=== PATIENT | male | born 1970 | race Hispanic/Latino ===

== ENCOUNTER 2018-10-20 17:16 | Inpatient (IN) | payer MEDICAID ==
[2018-10-20 17:16] VITALS: BMI 28.2
--- NOTE | 2018-10-20 19:04 | ED PDOC ---
HPI: Psych/Substance Abuse Time Seen by Provider: 10/20/18 18:00 Chief Complaint (Nursing): Psychiatric Evaluation Chief Complaint (Provider): Psychiatric Evaluation History Per: Patient, Family (cousin ) History/Exam Limitations: no limitations Onset/Duration Of Symptoms: Days (few weeks) Associated Symptoms: Anxiety, Suicidal Thoughts, Suicidal Plan Additional Complaint(s): 48 year old male with a history of anxiety, questionable COPD and CAD (stents placed in March 2018) presents to the ED accompanied by cousin and aunt for psychiatric evaluation. Patient states he has been having frequent, recurrent panic attacks over the past few weeks. He takes Xanax, last dose was 1 mg PO this morning. Patient presented to [facility] today because he was having recurrent panic attacks and was sent home a couple hours later. Since arriving home, he began feeling anxious and had another attack, prompting ED visit. History was corroborated by cousin, who states patient is addicted to Xanax and has been taking his mothers pills. As per cousin, patient was seen at [facility] a week or two ago. At that time, he was told he would get any further Xanax as he was abusing it. Patient has gone through 60 pills in less than 3 weeks. Of note, patient states he needs help, cant live like this and wants to . He also stated that he would take pills today, took a knife and threatened to stab himself. PMD: Dr. Brunner Past Medical History Reviewed: Historical Data, Nursing Documentation, Vital Signs Vital Signs: Last Vital Signs Temp 98.5 F 10/20/18 17:23 Pulse 95 H 10/20/18 17:23 Resp 17 10/20/18 17:23 BP 144/96 H 10/20/18 17:23 Pulse Ox 99 10/20/18 17:23 - Medical History PMH: Anemia (Denied by pt.), Anxiety, Arthritis, Asthma, Back Problems, Bipolar Disorder, Bronchitis, COPD, Depression, Fractures (L ANKLE FX,LOWER BACK RECONSTRUCTIVE SX,L KNEE SYNOVITIS,R SHOULDER,R KNEE,), HTN, Hypercholesterolemia, Hyperlipidemia, TIA Denies: Alzheimer's Disease, Cardia Arrhythmia, Crohn's Disease, Dementia, Diabetes, Diverticulitis, Emphysema, Fibromyalgia, Gastrointestinal Ulcer, Gall Bladder Disease, Hepatitis, HIV, Hyperthyroidism, Hypothyroidism, Kidney Stones, Migraine, Mitral Valve Prolapse, Osteoporosis, Pancreatitis, Paranoia, Parkinson's Disease, Peripheral Edema, Pneumonia, Post Traumatic Stress Diso rder, Chronic Kidney Disease, Schizophrenia, Seizures, Sickle Cell Disease, Sexually Transmitted Disease, Sleep Apnea Comment Only: CHF (PR . S/p TCCA stent placement X 2 weeks ago.) - Surgical History Surgical History: Coronary Stent (X1) Denies: Pacemaker - Family History Family History: States: Unknown Family Hx - Immunization History Hx Tetanus Toxoid Vaccination: No Hx Influenza Vaccination: No Hx Pneumococcal Vaccination: No - Home Medications Home Medications: Ambulatory Orders Medication Instructions Recorded RX: Pantoprazole Sodium [Protonix] 40 mg PO DAILY 03/18/18 RX: Aspirin [Aspirin Chewable] 81 mg PO DAILY #30 chew 03/23/18 RX: Atorvastatin [Lipitor] 40 mg PO DIN #30 tab 03/23/18 RX: Clopidogrel [Plavix] 75 mg PO DAILY #30 tab 03/23/18 RX: ALPRAZolam [Xanax] 2 mg PO Q8H PRN 10/12/18 RX: Gabapentin [Neurontin] 100 mg PO DAILY 10/12/18 RX: Insulin Detemir [Levemir] 15 unit SC QAM 10/12/18 RX: Losartan [Cozaar] 50 mg PO DAILY 10/12/18 RX: MetFORMIN ER [Glucophage XR] 500 mg PO BID 10/12/18 RX: Metoprolol Succinate [Toprol 25 mg PO DAILY 10/12/18 Xl] RX: Oxycodone HCl [Oxycontin] 15 mg PO BID PRN 10/12/18 RX: oxyCODONE [oxyCODONE Immediate 10 mg PO TID PRN 10/12/18 Release Tab] RX: PARoxetine [Paxil] 10 mg PO HS #14 tab 10/13/18 - Allergies Allergies/Adverse Reactions: Allergies Allergy/AdvReac Type Severity Reaction Status Date / Time carisoprodol [From Soma] Allergy DIZZINESS Verified 10/20/18 17:26 varenicline [From Chantix] Allergy VOMITING Verified 10/20/18 17:26 Review of Systems ROS Statement: Except As Marked, All Systems Reviewed And Found Negative Cardiovascular: Positive for: Chest Pain Respiratory: Positive for: Shortness of Breath Psych: Positive for: Anxiety, Suicidal ideation Physical Exam - Reviewed Nursing Documentation Reviewed: Yes Vital Signs Reviewed: Yes - Physical Exam Appears: Positive for: No Acute Distress (but anxious appearing) Head Exam: Positive for: ATRAUMATIC, NORMOCEPHALIC Skin: Positive for: Normal Color, Warm, Dry Eye Exam: Positive for: Conjunctival injection (bilateral) Neck: Positive for: Normal Cardiovascular/Chest: Positive for: Tachycardia. Negative for: Murmur Respiratory: Positive for: Normal Breath Sounds. Negative for: Respiratory Distress Extremity: Positive for: Normal ROM (upper and lower). Negative for: Pedal Edema, Deformity Neurologic/Psych: Positive for: Alert, Oriented, Other (bilateral hand tremors, he appears anxious) - Laboratory Results Result Diagrams: 10/20/18 19:04 10/20/18 19:04 - ECG O2 Sat by Pulse Oximetry: 99 (RA) Pulse Ox Interpretation: Normal Medical Decision Making Medical Decision Making: Time: 1828 Plan: --Crisis evaluation --urine drug screen --CBC --CMP --EKG --portable CXR --serum ETOH --UA Time: 1940 --Patient to be admitted for unspecified substance abuse disordered under Dr. Jamison. Time: 1954 --Normal sinus rhythm, 84 bpm, normal ECG. CXR read by provider, no acute disease. Patient is medically stable for psychiatric admission. Patient mildly agitated so Vesteril 50mg PO x 1 ordered. Scribe Attestation: Documented by Silva Ojeda, acting as a scribe for Izzy Martino PA-C Provider Scribe Attestation: All medical record entries made by the Scribe were at my direction and personally dictated by me. I have reviewed the chart and agree that the record accurately reflects my personal performance of the history, physical exam, medical decision making, and the department course for this patient. I have also personally directed, reviewed, and agree with the discharge instructions and disposition. Disposition - Clinical Impression Clinical Impression: Other psychoactive substance abuse, uncomplicated - Patient ED Disposition Is Patient to be Admitted: Yes Discussed With : Baldemar Jamison Doctor Will See Patient In The: Hospital Counseled Patient/Family Regarding: Studies Performed, Diagnosis, Need For Followup - Disposition Disposition: Transfer of Care Disposition Time: 19:41 Condition: STABLE
[2018-10-20 19:09] LABS: BASO # 0.2 K/uL (0.0-0.2); BASO % 1.2 % (0.0-2.0); EOS # 0.1 K/uL (0.0-0.7); EOS % 0.5 % (0.0-4.0); HEMOGLOBIN 16.6 g/dL (12.0-18.0); LYMPH % 21.3 % (20.0-40.0); MEAN CELL VOLUME 90.8 fl (80.0-94.0); MEAN CORPUSCULAR HGB CONC 35.3 g/dL (33.0-37.0); MEAN PLATELET VOLUME 9.4 fl (7.2-11.7); MONO # 0.8 K/uL (0.0-0.8); MONO % 5.6 % (0.0-10.0); NEUT # 10.1 K/uL (1.8-7.0); NEUT % 71.4 % (50.0-75.0); RBC 5.19 Mil/uL (4.40-5.90); RED CELL DISTRIBUTION WIDTH 13.1 % (11.5-14.5); WHITE BLOOD COUNT 14.1 K/uL (4.8-10.8)
[2018-10-20 19:17] LABS: ALB/GLOB RATIO 1.4 (1.0-2.1); ALBUMIN 4.2 g/dL (3.5-5.0); ALT/SGPT 27 U/L (21-72); AST/SGOT 19 U/L (17-59); BLOOD UREA NITROGEN 18 mg/dl (9-20); CALCIUM 9.7 mg/dL (8.4-10.2); GFR NON-AFRICAN AMERICAN > 60
[2018-10-20 19:18] LABS: URINE BILIRUBIN NEGATIVE (NEGATIVE); URINE BLOOD NEGATIVE (NEGATIVE); URINE CALCIUM OXALATE CRYSTALS MANY /hpf (<OCC); URINE CLARITY SLIGHTY-CLOUDY (Clear); URINE COLOR YELLOW (YELLOW); URINE GLUCOSE (UA) NEG (NEGATIVE); URINE LEUKOCYTE ESTERASE NEG Leu/uL (Negative); URINE PROTEIN 100 mg/dL (NEGATIVE)
[2018-10-20 19:20] LABS: GRANULAR CAST 5 /lpf (0-1); URINE BACTERIA FEW (<OCC)
[2018-10-20 19:40] LABS: BARBITURATES, UR NEGATIVE (NEGATIVE); BENZODIAZEPINES, UR POSITIVE (NEGATIVE); OPIATES, UR POSITIVE (NEGATIVE); PHENCYCLIDINE, UR NEGATIVE (NEGATIVE)
[2018-10-20 21:16] VITALS: O2SAT 99
[2018-10-20] MEDS ORDERED: Alum-Mag Hydrox-Simethicone Susp (30 mL) PO PRN (21:47)
[2018-10-20] MEDS ORDERED: Magnesium Hydroxide Susp 30 ml UD PO PRN (21:47)
[2018-10-20] MEDS ORDERED: DiphenhydrAMINE 50 mg/ml Inj IM PRN (21:47)
--- NOTE | 2018-10-21 00:55 | PCM.BM ---
<ErastoameyaEwelina Ivory - Last Filed: 10/21/18 00:53> Treatment Plan Problems - Problems identified on initial assessmt Anxiety Date Initiated: 10/20/18 Time Initiated: 22:00 Assessment reference: NA Status: Active Panic attacks Date Initiated: 10/20/18 Time Initiated: 22:00 Assessment reference: NA Status: Active Altered Sleep Patterns Date Initiated: 10/20/18 Time Initiated: 22:00 Assessment reference: NA Status: Active Treatment assets and liabiliti Patient Assests: cooperative, ADL independent, good support system, negotiates basic needs, good past tx response, cognitively intact Patient Liabilities: physical pain, substance abuse, medical problems - Milieu Protocol Maintain good personal hygiene: daily Encourage regular showers, daily Remind patient to perform daily oral care (prn), other Remind patient to perform daily oral care, other Assist patient to perform ADL's (prn) Conduct patient checks and document Observation sheet: Q15 minutes Maintain personal safety: every shift Educate patient to report safety concerns to staff, every shift Monitor environment for contraband/sharps Medication safety: Monitor for expected outcome, potential side effects: every shift, Assess barriers to learning: every shift, Assess readiness for medication education: every shift <Ranjana Summers - Last Filed: 10/25/18 12:10> Treatment assets and liabiliti Patient Assests: adapts well, cooperative, resourceful, good support system (Pt. reports having a loving and supportive relationship with family (mother, cousins, siblings). Pt. reports father was primary support until his passing 6 years ago. Pt. identifies fathers passing as a stressor. ), negotiates basic needs, good past tx response, cognitively intact Patient Liabilities: physical pain (Pt. reports hx of a spinal fusion resulting in pt. being placed on pain medication. Pt. 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 Please see H&P.), substance abuse (Pt. reports significant hx of cocaine abuse but reports maintaining sobriety for 20 years. As per collateral collected from pts family at admission, pt. has been abusing prescription drugs (Xanax, Oxy, Paxil). Family reported suspicion that pt. is taking prescription drugs from mother. Family reported pt. was found unresponsive in 08/2017 and required Narcan, resulting in admission to ICU/coma for 5 days. Pt. adamantly denies this as a result of substance abuse.) Family Contact Family involvement: Family/SO is involved Family contact: Patient agrees to contact, Family has been contacted by patient, Telephone contact initiated by staff Family contact comment: Award Clerk placed call to pts cousin (Juan Francisco [phone]) to notify pts cousin and mother that Nurse E Learning Manager Berkley Medina has approved family request to visit patient outside of visitation hours (for 30 minutes) secondary to pts mother not driving and needing cousin to bring her to [facility]. staffing and scheduling coordinator has also been notified of the above. Award Clerk forwarded to unidentified voicemail. No voicemail left. Award Clerk to attempt call at later time. . Award Clerk to contact pts mother to discuss pts tx and address family concerns. - Goals for Treatment Patient goals for treatment: Patient to continue stabilization on 3NP through medication management and group/supportive therapy to address sxs of anxiety, reduce intensity and frequency of panic attacks, and improve insight into abuse of substances. Patient to be encouraged to attend groups regularly to promote self-awareness, sobriety, and improve insight, compliance, coping skills and self-esteem. Patient to be provided with referral for appropriate level of aftercare to reduce risk of future hospitalizations and ensure safety in the community. Pt. identified primary tx goal to "stop having panic attacks." Discharge/Continuing Care - Education Needs Education Needs: Family Medication, Family Diagnosis/Disease Process, Family Coping Skills, Family Community resources, Family Aftercare Safety Plan, Patient Medication, Patient Diagnosis/Disease Process, Patient Coping Skills, Patient Anger Management skills, Patient Community resources, Patient Health Practices/Safety, Patient Aftercare Safety Plan - Discharge Discharge Criteria: Tolerates medication w/o severe side effects, Free of Suicidal thoughts, Free of agitation, Normal sleep pattern, Ability to care for self, No longer exhibiting s/s of withdrawal, Reduction of target symptoms (reduction in frequency/intensity of panic attacks) Discharge to:: Home, With Family - Treatment Team Participation Patient/Family/SO Statement: 10/25/18 12:17 Patient brought into tx team on 10/23 to discuss precursors to hospitalization and tx goals. Pt. reported frequent panic attacks and contributed worsening intensity/frequency to discontinuation of Xanax. Extensive psychoeducation regarding long-term risks of Xanax use provided. Pt. minimally receptive to feedback, stating Its the only thing that works. Pt. appeared to be minimizing substance abuse and denied validity of family concerns regarding pts abuse of prescription medications. Alternate health coping skills and medication management discussed at length. Pt. ambivalent but agreeable to recommended medication regimen. Pt. presents as anxious as exhibited by restlessness. Pt. denied SI/HI and is able to contract for safety on 3NP. Pt. visible on 3NP and observed socializing appropriately with peers. Discussed with Family/SO: No Was Patient/Family/SO present at Treatment Team Meeting: Yes <Baldemar Jamison - Last Filed: 10/26/18 08:58> - Diagnosis (1) Sedative abuse Status: Acute Interventions: 10/26/18 08:57 motivational therapy
--- NOTE | 2018-10-21 09:10 | RAD ---
HISTORY: chest pain COMPARISON: None available. TECHNIQUE: Chest, one view. FINDINGS: LUNGS: No focal consolidation. Please note that chest x-ray has limited sensitivity for the detection of pulmonary masses. PLEURA: No significant pleural effusion identified. No definite pneumothorax . CARDIOVASCULAR: Heart size appears within normal. No significant atherosclerotic calcification present. OSSEOUS STRUCTURES: No acute osseous abnormality identified. VISUALIZED UPPER ABDOMEN: Unremarkable. OTHER FINDINGS: None. IMPRESSION: No focal consolidation.
[2018-10-21] MEDS: Multivitamin With Minerals Tab PO SCH (10:30)
[2018-10-21 10:31] LABS: HEMOGLOBIN 16.3 g/dL (12.0-18.0); MEAN CELL VOLUME 92.4 fl (80.0-94.0); MEAN CORPUSCULAR HEMOGLOBIN 31.8 pg (27.0-31.0); MEAN CORPUSCULAR HGB CONC 34.5 g/dL (33.0-37.0); RBC 5.11 Mil/uL (4.40-5.90); RED CELL DISTRIBUTION WIDTH 13.2 % (11.5-14.5); WHITE BLOOD COUNT 7.1 K/uL (4.8-10.8)
--- NOTE | 2018-10-21 10:36 | CP.PCM.CON ---
History of Present Illness - History of Present Illness History of Present Illness: 48 yo male with history of CAD, COPD, DM2, HTN, HLD and Anxiety admitted to psyche unit because of recurrent panic attacks the last few weeks. The patient has been abusing intake of Xanax because of increased anxiety. Review of Systems - Review of Systems All systems: reviewed and no additional remarkable complaints except (aside from those mentioned above, 12 point system review were negative by me) Past Patient History - Infectious Disease Hx of Infectious Diseases: None - Tetanus Immunizations Tetanus Immunization: Unknown - Past Medical History & Family History Past Medical History?: Yes - Past Social History Smoking Status: Heavy Smoker > 10 Cigarettes Daily Chewing Tobacco Use: No Cigar Use: No Alcohol: Occasional Drugs: Denies Home Situation {Lives}: With Family - CARDIAC Hx Cardia Arrhythmia: No Hx Heart Attack: Yes Hx Hypercholesterolemia: Yes Hx Hypertension: Yes Hx Mitral Valve Prolapse: No Hx Pacemaker: No Hx Peripheral Edema: No - PULMONARY Hx Asthma: Yes Hx Bronchitis: Yes Hx Chronic Obstructive Pulmonary Disease (COPD): Yes Hx Emphysema: No Hx Pneumonia: No Hx Sleep Apnea: No - NEUROLOGICAL Hx Alzheimer's Disease: No Hx Dementia: No Hx Migraine: No Hx Parkinson's Disease: No Hx Seizures: No Hx Transient Ischemic Attacks (TIA): Yes - HEENT Hx HEENT Problems: No - RENAL Hx Chronic Kidney Disease: No Hx Kidney Stones: No - ENDOCRINE/METABOLIC Hx Diabetes Mellitus Type 2: Yes - HEMATOLOGICAL/ONCOLOGICAL Hx Anemia: Yes (Denied by pt.) Hx Human Immunodeficiency Virus (HIV): No Hx Sickle Cell Disease: No - INTEGUMENTARY Hx Dermatological Problems: Yes (Allergy to red tattoo dye.) - MUSCULOSKELETAL/RHEUMATOLOGICAL Hx Arthritis: Yes Hx Osteoporosis: No - GASTROINTESTINAL Hx Crohn's Disease: No Hx Diverticulitis: No Hx Gall Bladder Disease: No Hx Pancreatitis: No - GENITOURINARY/GYNECOLOGICAL Hx Sexually Transmitted Disorders: No - PSYCHIATRIC Hx Substance Use: Yes - SURGICAL HISTORY Hx Coronary Stent: Yes Other/Comment: Reconstructed spine and right shoulder - ANESTHESIA Hx Anesthesia: Yes Hx Anesthesia Reactions: No Hx Malignant Hyperthermia: No Has any member of the family had a problem w/ anesthesia?: No Meds Allergies/Adverse Reactions: Allergies Allergy/AdvReac Type Severity Reaction Status Date / Time carisoprodol [From Soma] Allergy DIZZINESS Verified 10/20/18 17:26 varenicline [From Chantix] Allergy VOMITING Verified 10/20/18 17:26 - Medications Medications: Current Medications Acetaminophen (Tylenol 325mg Tab) 650 mg PO Q4 PRN PRN Reason: pain (4-7) Al Hydrox/Mg Hydrox/Simethicone (Maalox Plus 30 Ml) 30 ml PO Q4 PRN PRN Reason: Dyspepsia Clonidine HCl (Catapres) 0.1 mg PO Q8 [facility] Stop: 10/24/18 01:01 Last Admin: 10/21/18 00:59 Dose: Not Given Diphenhydramine HCl (Benadryl) 50 mg IM Q6 PRN PRN Reason: Extrapyramidal S/S Unable PO Diphenhydramine HCl (Benadryl) 50 mg PO Q6 PRN PRN Reason: Extrapyramidal Symptoms Haloperidol (Haldol) 5 mg PO Q4 PRN PRN Reason: Agitation Haloperidol Lactate (Haldol) 5 mg IM Q4 PRN PRN Reason: Agitation, Unable to Take PO Ibuprofen (Motrin Tab) 600 mg PO Q8 PRN PRN Reason: pain (8-10) Loperamide HCl (Imodium) 2 mg PO Q6 PRN PRN Reason: after each LBM Stop: 10/23/18 21:55 Lorazepam (Ativan) 2 mg IM Q4 PRN PRN Reason: Anxiety/Agitation,Unable PO Lorazepam (Ativan) 2 mg PO Q8 PRN PRN Reason: Anxiety/Agitation Last Admin: 10/20/18 22:17 Dose: 2 mg Magnesium Hydroxide (Milk Of Magnesia) 30 ml PO HS PRN PRN Reason: Constipation Multivitamins/Minerals (Therapeutic-M Tab) 1 tab PO DAILY [facility] Last Admin: 10/21/18 10:30 Dose: 1 tab Physical Exam - Constitutional Appears: No Acute Distress - Head Exam Head Exam: ATRAUMATIC - Eye Exam Eye Exam: absent: Scleral icterus - ENT Exam ENT Exam: Mucous Membranes Moist - Neck Exam Neck exam: Negative for: Meningismus - Respiratory Exam Respiratory Exam: absent: Rales, Rhonchi, Wheezes, Respiratory Distress - Cardiovascular Exam Cardiovascular Exam: REGULAR RHYTHM, +S1, +S2 - GI/Abdominal Exam GI & Abdominal Exam: Soft. absent: Tenderness - Rectal Exam Rectal Exam: Deferred - Extremities Exam Extremities exam: Negative for: pedal edema - Back Exam Back exam: NORMAL INSPECTION - Neurological Exam Neurological exam: Alert, Oriented x3 - Psychiatric Exam Psychiatric exam: Normal Affect - Skin Skin Exam: Dry, Intact Results - Vital Signs Recent Vital Signs: Last Vital Signs Temp 97.5 F L 10/21/18 09:00 Pulse 100 H 10/21/18 09:00 Resp 20 10/21/18 09:00 BP 130/89 10/21/18 09:00 Pulse Ox 99 10/20/18 21:17 - Labs Result Diagrams: 10/20/18 19:04 10/20/18 19:04 Labs: Laboratory Results - last 24 hr 10/20/18 10/20/18 10/20/18 19:04 19:04 19:04 WBC 14.1 H RBC 5.19 Hgb 16.6 Hct 47.1 MCV 90.8 MCH 32.0 H MCHC 35.3 RDW 13.1 Plt Count 168 MPV 9.4 Neut % (Auto) 71.4 Lymph % (Auto) 21.3 [place] % (Auto) 5.6 Eos % (Auto) 0.5 Baso % (Auto) 1.2 Neut # (Auto) 10.1 H Lymph # (Auto) 3.0 [place] # (Auto) 0.8 Eos # (Auto) 0.1 Baso # (Auto) 0.2 Sodium 137 Potassium 3.5 L Chloride 100 Carbon Dioxide 21 L Anion Gap 20 BUN 18 Creatinine 1.0 Est GFR ( Amer) > 60 Est GFR (Non-Af Amer) > 60 POC Glucose (mg/dL) Random Glucose 172 H Calcium 9.7 Total Bilirubin 0.6 AST 19 ALT 27 Alkaline Phosphatase 98 Total Protein 7.3 Albumin 4.2 Globulin 3.0 Albumin/Globulin Ratio 1.4 Urine Color Urine Clarity Urine pH Ur Specific [place] Urine Protein Urine Glucose (UA) Urine Ketones Urine Blood Urine Nitrate Urine Bilirubin Urine Urobilinogen Ur Leukocyte Esterase Urine RBC (Auto) Urine Microscopic WBC Calcium Oxalate Crystal Urine Bacteria Granular Casts (Auto) Urine Opiates Screen Positive H Urine Methadone Screen Negative Ur Barbiturates Screen Negative Ur Phencyclidine Scrn Negative Ur Amphetamines Screen Negative U Benzodiazepines Scrn Positive U Oth Cocaine Metabols Negative U Cannabinoids Screen Negative 10/20/18 10/20/18 10/21/18 19:04 22:13 06:32 WBC RBC Hgb Hct MCV MCH MCHC RDW Plt Count MPV Neut % (Auto) Lymph % (Auto) [place] % (Auto) Eos % (Auto) Baso % (Auto) Neut # (Auto) Lymph # (Auto) [place] # (Auto) Eos # (Auto) Baso # (Auto) Sodium Potassium Chloride Carbon Dioxide Anion Gap BUN Creatinine Est GFR ( Amer) Est GFR (Non-Af Amer) POC Glucose (mg/dL) 176 H 142 H Random Glucose Calcium Total Bilirubin AST ALT Alkaline Phosphatase Total Protein Albumin Globulin Albumin/Globulin Ratio Urine Color Yellow Urine Clarity Slighty-cloudy Urine pH 6.0 Ur Specific [place] 1.029 Urine Protein 100 Urine Glucose (UA) Neg Urine Ketones Trace Urine Blood Negative Urine Nitrate Negative Urine Bilirubin Negative Urine Urobilinogen 2.0 Ur Leukocyte Esterase Neg Urine RBC (Auto) 1 Urine Microscopic WBC 1 Calcium Oxalate Crystal Many H Urine Bacteria Few H Granular Casts (Auto) 5 Urine Opiates Screen Urine Methadone Screen Ur Barbiturates Screen Ur Phencyclidine Scrn Ur Amphetamines Screen U Benzodiazepines Scrn U Oth Cocaine Metabols U Cannabinoids Screen Assessment & Plan (1) Panic attack Status: Chronic Priority: Medium Comment: psyche is managing (2) CAD (coronary artery disease) Status: Chronic Comment: continue ASA, Plavix, Lipitor and Metoprolol (3) COPD (chronic obstructive pulmonary disease) Status: Chronic Comment: asymptomatic (4) DM2 (diabetes mellitus, type 2) Status: Chronic Comment: BS relatively controlled. diabetic diet. continue Levemir. accuchek ACHS (5) HTN (hypertension) Status: Chronic Comment: BP stable. continue Losartan and Metoprolol
[2018-10-21 11:08] LABS: T4 7.66 ug/dl (5.5-11.0)
--- NOTE | 2018-10-21 11:31 | PCM.PSYCH ---
Initial Psychiatric Evaluation - Initial Psychiatric Evaluation Chief Complaint (in patient's own words): I have severe anxiety History of Present Illness and Precipitating Events: pt is 48 ys old male with previous diagnosis of generalized anxiety disorder, panic disorder and opiate and benzodiazepines abuse , reported to ER with increased anxiety frequent panic attacks, depression and suicidal ideation pt recently discharged from [facility], has been abusing xanax and pain medications, reported frequent panic attacks poor sleep, depressed mood and thoughts of ending his life' on the unit pt reported continues to feel anxious and irritable, poor sleep, passive suicidal ideation without active plan or intent on the unit, denied command hallucinations, denied homicidal ideation collateral information from the pt.s cousin, Juan Francisco Melton, . The pt.s cousin reported that the pt. is addicted to prescription pills, Xanax, Oxycodone , Paxil and many medications that he gains access to. The pt.s cousin explains that he was in [facility] on September 27 and was gone a prescription of Xanax that he took within one weeks time. According to the pts cousin he also takes his mothers prescription pills. The pt. has also lied suggesting that he is addicted to other illnesses just to obtain medications. The pt.s cousin reported that the pt. has never made any suicide attempts. The pt.s cousin reported that the pt. was discharged from [facility] today, and subsequently the pt. grabbed a knife and threatened to hurt himself. The pt.s cousin reported that the pt. had a spinal fusion and went to [facility] and was released with pain medication in the past, which may have contributed to his abuse. The pt.s father also six years ago, which may contribute to his life stress considering they owned a business together and were very close. The pt.s cousin reported that this is an atypical level of anxiety for the pt. and does believe that he may be capable of hurting himself. The pt.s cousin reported that the pt. has been seen speaking to himself. The pt.s cousin does believe that the pt. would benefit from inpatient psychiatric admission. The pt.s cousin reported that in August 2017 the pt. was found unresponsive and he needed to be given Narcan. Current Medications: Active Medications Generic Name Dose Route Start Last Admin Trade Name Freq PRN Reason Stop Dose Admin Acetaminophen 650 mg 10/20/18 21:47 Tylenol 325mg Tab PO Q4 PRN pain (4-7) Al Hydrox/Mg Hydrox/Simethicone 30 ml 10/20/18 21:47 Maalox Plus 30 Ml PO Q4 PRN Dyspepsia Clonidine HCl 0.1 mg 10/21/18 01:00 10/21/18 00:59 Catapres PO 10/24/18 01:01 Not Given Q8 LAYO Diphenhydramine HCl 50 mg 10/20/18 21:47 Benadryl IM Q6 PRN Extrapyramidal S/S Unable PO Diphenhydramine HCl 50 mg 10/20/18 21:47 Benadryl PO Q6 PRN Extrapyramidal Symptoms Haloperidol 5 mg 10/20/18 21:47 Haldol PO Q4 PRN Agitation Haloperidol Lactate 5 mg 10/20/18 21:47 Haldol IM Q4 PRN Agitation, Unable to Take PO Ibuprofen 600 mg 10/20/18 21:54 Motrin Tab PO Q8 PRN pain (8-10) Loperamide HCl 2 mg 10/20/18 21:54 Imodium PO 10/23/18 21:55 Q6 PRN after each LBM Lorazepam 2 mg 10/20/18 21:47 Ativan IM Q4 PRN Anxiety/Agitation,Unable PO Lorazepam 2 mg 10/20/18 21:47 10/20/18 22:17 Ativan PO 2 mg Q8 PRN Administration Anxiety/Agitation Magnesium Hydroxide 30 ml 10/20/18 21:47 Milk Of Magnesia PO HS PRN Constipation Multivitamins/Minerals 1 tab 10/21/18 09:00 Therapeutic-M Tab PO DAILY LAYO Past Psychiatric History - Past Psychiatric History Explanation of prior treatment: multiple hospitalizations, partial compliance History of ETOH/Drug Use: hx of opiate , benzodiazepines abuse Pertinent Medical Hx (Current Medical&Sleep Prob, Allergies): Allergies Allergy/AdvReac Type Severity Reaction Status Date / Time carisoprodol [From Soma] Allergy DIZZINESS Verified 10/20/18 17:26 varenicline [From Chantix] Allergy VOMITING Verified 10/20/18 17:26 Pantoprazole Sodium [Protonix] 40 mg PO DAILY 03/18/18 Aspirin [Aspirin Chewable] 81 mg PO DAILY #30 chew 03/23/18 Atorvastatin [Lipitor] 40 mg PO DIN #30 tab 03/23/18 Clopidogrel [Plavix] 75 mg PO DAILY #30 tab 03/23/18 ALPRAZolam [Xanax] 2 mg PO Q8H PRN 10/12/18 Gabapentin [Neurontin] 100 mg PO DAILY 10/12/18 Insulin Detemir [Levemir] 15 unit SC QAM 10/12/18 Losartan [Cozaar] 50 mg PO DAILY 10/12/18 MetFORMIN ER [Glucophage XR] 500 mg PO BID 10/12/18 Metoprolol Succinate [Toprol Xl] 25 mg PO DAILY 10/12/18 Oxycodone HCl [Oxycontin] 15 mg PO BID PRN 10/12/18 oxyCODONE [oxyCODONE Immediate Release Tab] 10 mg PO TID PRN 10/12/18 PARoxetine [Paxil] 10 mg PO HS #14 tab 10/13/18 Mental Status Examination - Personal Presentation Personal Presentation: Looks stated age - Affect Affect: Constricted - Motor Activity Motor Activity: Psychomotor Agitation - Reliability in Providing Information Reliability in Providing Information: Poor, due to altered mood - Speech Speech: Relevant - Mood Mood: Depressed, Anxious - Formal Thought Process Formal Thought Process: Circumstantial - Obsessions/Compulsions Obsessions: No Compulsions: No - Cognitive Functions Orientation: Person, Place, Situation Sensorium: Alert Attention/Concentration: Easily distracted Abstract Thinking: [place] Judgement: Imparied, as evidence by: Poor judgement, Imparied, as evidence by: Lack of insight into illness - Risk Risk: Suicidal, Withdrawal, Diminished functioning - Strength & Assets Inventory Strength & Assets Inventory: Life experience - Limitations Additional comments: poor compliance DSM 5 DX - DSM 5 DSM 5 Diagnosis: generalized anxiety disorder panic disorder sedative anxiolytic abuse opiate abuse - Recommended/Plan of Treatment Treatment Recommendations and Plan of Treatment: clonidine protocol/ monitor for opiate withdrawal consult internal medicine for pain management klonopin 1mg tid for xanax withdrawal, decrease gradually ativan 1mg tid for benzo withdrawal paxil 10mg qhs
--- NOTE | 2018-10-21 16:56 | CARD ---
APPROVED REPORT Date of service: 10/20/2018 EKG Measurement Heart [id number] <Conclusion> Normal sinus rhythm Normal ECG
[2018-10-21] MEDS: Oxycodone/Acetaminophen 5/325 mg Tab PO PRN (18:38)
--- NOTE | 2018-10-22 08:33 | PCM.PYCHPN ---
Psychiatric Progress Note - Psychiatric Progress Note Patient seen today, length of contact: Pt evaluated, case discussed w/ team, chart reviewed Patient Chief Complaint: "Severe, debilitating anxiety." Problems Identified/Issues Discussed: Patient reports that he feels "severe, debilitating anxiety." He reports concerns that he is going to have a panic attack and reports that he feels like he is having a heart attack when he has panic attacks. Psychoeducation provided on the importance of therapy and learning coping strategies to deal with anxiety. Psychoeducation also provided on the dangers of benzodiazepine abuse. Patient informed that the Klonopin will be tapered gradually. Medication Change: No (Will taper Klonopin starting tomorrow AM) Medical Record Reviewed: Yes Consults ordered or reviewed: Medicine Mental Status Examination - Cognitive Function Orientation: Person, Place, Situation, Time Memory: Intact Attention: WNL Concentration: WNL Association: WNL Fund of Knowledge: [facility] Decription of patient's judgement and insights: Poor I/J - Mood Mood: Depressed, Anxious - Affect Affect: Constricted - Formal Thought Process Formal Thought Process: No Impairment Psychotic Thoughts and Behaviors: Denies AH/VH/paranoia - Suicidal Ideation Suicidal Ideation: No - Homicidal Ideation Homicidal Ideation: No Goal/Treatment Plan - Goal/Treatment Plan Need for Continued Stay: Severe depression anxiety, Discharge may exacerbated symptoms Progress Toward Problem(s) and Goals/Treatment Plan: -Continue current medications; will taper Klonopin starting tomorrow AM -Individual and group therapy -Psychoeducation -Disposition planning
[2018-10-22] MEDS: Pantoprazole 40 mg EC Tab PO SCH (09:04)
[2018-10-22] MEDS: Multivitamin With Minerals Tab PO SCH (09:04)
[2018-10-22] MEDS: Metoprolol Succinate 25 mg XL Tab PO SCH (09:06)
[2018-10-22] MEDS: Oxycodone/Acetaminophen 5/325 mg Tab PO PRN ×3 (09:07→18:31)
[2018-10-22] MEDS: Insulin Detemir 100 Units/ml Inj SC SCH (09:11)
[2018-10-22] MEDS: Insulin Lispro (humaLOG) 100 Units/ml Inj SC SCH ×2 (17:17→21:17)
[2018-10-23] MEDS: Metoprolol Succinate 25 mg XL Tab PO SCH (10:57)
[2018-10-23] MEDS: Pantoprazole 40 mg EC Tab PO SCH (10:57)
[2018-10-23] MEDS: Multivitamin With Minerals Tab PO SCH (10:58)
[2018-10-23] MEDS: Insulin Detemir 100 Units/ml Inj SC SCH (11:05)
[2018-10-23] MEDS: Insulin Lispro (humaLOG) 100 Units/ml Inj SC SCH ×4 (11:12→21:07)
[2018-10-23] MEDS: Oxycodone/Acetaminophen 5/325 mg Tab PO PRN ×2 (11:35→21:35)
--- NOTE | 2018-10-23 13:21 | PCM.PYCHPN ---
Psychiatric Progress Note - Psychiatric Progress Note Patient seen today, length of contact: Pt evaluated, case discussed w/ team, chart reviewed Patient Chief Complaint: I am having panic attacks out of the blue Problems Identified/Issues Discussed: pt evaluated with treatment team, continues to report unprovoked repeated panic attacks with difficulty to breath , Psychoeducation provided, advised pt importance of starting CBT and individual therapy, motivational therapy provided in refernce to effects of xanax and opiate abuse on current mental status, pt aware that there will be gradual down tapering of klonopin, also will increase paxil, no reported omar effects pt denied suicidal or homicidal ideation, denied perceptual disturbances Medical Problems: multiple hospitalizations, partial compliance DSM 5 Symptoms Update: panic disorder opiate abuse benzodiazepines abuse Medication Change: Yes (increase paxil) Medical Record Reviewed: Yes Mental Status Examination - Cognitive Function Orientation: Person, Place, Situation, Time Memory: Intact Attention: WNL Concentration: WNL Association: WN Fund of Knowledge: WN - Mood Mood: Depressed, Anxious - Affect Affect: Constricted - Formal Thought Process Formal Thought Process: No Impairment - Suicidal Ideation Suicidal Ideation: No - Homicidal Ideation Homicidal Ideation: No Goal/Treatment Plan - Goal/Treatment Plan Need for Continued Stay: Severe depression anxiety, Discharge may exacerbated symptoms Progress Toward Problem(s) and Goals/Treatment Plan: discontinue clonidine klonopin 0.5mg tid for xanax withdrawal, decrease gradually ativan 1mg tid for benzo withdrawal increase paxil 20mg qhs
[2018-10-24] MEDS: Oxycodone/Acetaminophen 5/325 mg Tab PO PRN (08:43)
[2018-10-24] MEDS: Multivitamin With Minerals Tab PO SCH (08:44)
[2018-10-24] MEDS: Metoprolol Succinate 25 mg XL Tab PO SCH (08:45)
[2018-10-24] MEDS: Pantoprazole 40 mg EC Tab PO SCH (08:45)
[2018-10-24] MEDS: Insulin Detemir 100 Units/ml Inj SC SCH (08:46)
[2018-10-24] MEDS: Insulin Lispro (humaLOG) 100 Units/ml Inj SC SCH ×4 (08:48→21:15)
[2018-10-24] MEDS ORDERED: Oxycodone/Acetaminophen 5/325 mg Tab PO PRN (08:51)
[2018-10-24] MEDS ORDERED: Oxycodone/Acetaminophen 5/325 mg Tab PO ONE (22:09)
[2018-10-25] MEDS: Insulin Lispro (humaLOG) 100 Units/ml Inj SC SCH ×4 (09:15→21:01)
[2018-10-25] MEDS: Multivitamin With Minerals Tab PO SCH (09:46)
[2018-10-25] MEDS: Pantoprazole 40 mg EC Tab PO SCH (09:47)
[2018-10-25] MEDS: Metoprolol Succinate 25 mg XL Tab PO SCH (09:47)
[2018-10-25] MEDS: Insulin Detemir 100 Units/ml Inj SC SCH ×2 (09:54→11:44)
[2018-10-25] MEDS ORDERED: Oxycodone/Acetaminophen 5/325 mg Tab PO PRN (11:39)
--- NOTE | 2018-10-25 15:21 | PCM.PYCHPN ---
Psychiatric Progress Note - Psychiatric Progress Note Patient seen today, length of contact: Pt evaluated, case discussed w/ team, chart reviewed Patient Chief Complaint: I NEED HELP WITH MY ANXIETY Problems Identified/Issues Discussed: pt evaluated with treatment team, reporting feeling anxious about the discontinuation of xanax , psychoeducation provided about the negative side effects of xanax discussed with pt the importance of starting CBT for management of panic disorder, no reported side effects with theincrease in paxil pt denied any current suicidal or homicidal ideation, denied perceptual disturbances pt denied suicidal or homicidal ideation, denied perceptual disturbances Medical Problems: multiple hospitalizations, partial compliance DSM 5 Symptoms Update: panic disorder' xanax abuse opiate abuse Medication Change: No (increase paxil) Medical Record Reviewed: Yes Mental Status Examination - Cognitive Function Orientation: Person, Place, Situation, Time Memory: Intact Attention: WNL Concentration: WNL Association: WNL Fund of Knowledge: WNL - Mood Mood: Depressed, Anxious - Affect Affect: Constricted - Formal Thought Process Formal Thought Process: No Impairment - Suicidal Ideation Suicidal Ideation: No - Homicidal Ideation Homicidal Ideation: No Goal/Treatment Plan - Goal/Treatment Plan Need for Continued Stay: Severe depression anxiety, Discharge may exacerbated symptoms Progress Toward Problem(s) and Goals/Treatment Plan: neurontin 200mg tid klonopin 0.25mg tid for xanax withdrawal, decrease gradually ativan 1mg tid for benzo withdrawal paxil 20mg qhs
--- NOTE | 2018-10-26 09:12 | PCM.PYCHDC ---
Mental Status Examination - Mental Status Examination Orientation: Person, Place, Situation, Time Memory: Intact Mood: Neutral Affect: Broad Speech: Appropriate Attention: WNL Concentration: WNL Association: WNL Fund of Knowledge: WNL Formal Thought Process: No Impairment Description of patient's judgement and insight: poor insight and judgment Psychotic Thoughts and Behaviors: pt denied perceptual disturbances, non elicited Suicidal Ideation: No Current Homicidal Ideation?: No Discharge Summary - Discharge Note Reason for Hospitalization: pt is 48 ys old male with previous diagnosis of generalized anxiety disorder, panic disorder and opiate and benzodiazepines abuse , reported to ER with increased anxiety frequent panic attacks, depression and suicidal ideation pt recently discharged from [facility], has been abusing xanax and pain medications, reported frequent panic attacks poor sleep, depressed mood and thoughts of ending his life' on the unit pt reported continues to feel anxious and irritable, poor sleep, passive suicidal ideation without active plan or intent on the unit, denied command hallucinations, denied homicidal ideation collateral information from the pt.s cousin, Juan Francisco Melton, . The pt.s cousin reported that the pt. is addicted to prescription pills, Xanax, Oxy codone , Paxil and many medications that he gains access to. The pt.s cousin explains that he was in [facility] on September 27 and was gone a prescription of Xanax that he took within one weeks time. According to the pts cousin he also takes his mothers prescription pills. The pt. has also lied suggesting that he is addicted to other illnesses just to obtain medications. The pt.s cousin reported that the pt. has never made any suicide attempts. The pt.s cousin reported that the pt. was discharged from [facility] today, and subsequently the pt. grabbed a knife and threatened to hurt himself. The pt.s cousin reported that the pt. had a spinal fusion and went to [facility] and was released with pain medication in the past, which may have contributed to his abuse. The pt.s father also six years ago, which may contribute to his life stress considering they owned a business together and were very close. The pt.s cousin reported that this is an atypical level of anxiety for the pt. and does believe that he may be capable of hurting himself. The pt.s cousin reported that the pt. has been seen speaking to himself. The pt.s cousin does believe that the pt. would benefit from inpatient psychiatric admission. The pt.s cousin reported that in August 2017 the pt. was found unresponsive and he needed to be given Narcan. Laboratory Data: Abnormal Lab Results 10/25/18 10/25/18 10/25/18 11:34 16:52 20:02 POC Glucose (mg/dL) 354 H 155 H 221 H 10/26/18 06:42 POC Glucose (mg/dL) 148 H Consultations:: List each consultation separately and include: 1. Reason for request. 2. Findings. 3. Follow-up Summary of Hospital Course include:: 1. Description of specific treatment plan utilized for patients during their course of treatmen. 2. Summarize the time- course for resolution of acute symptoms and/or regressed behaviors. 3. Describe issues identified and worked on during hospitalization. 4. Describe medication utilized. 5. Describe medical problems identified and treated. 6. Reassessment of suicide risk Summary of Hospital Course: pt on admission presented with depressed mood , anxious, reported experiencing multiple panic attacks and requesting to be placed on xanax, discussed with pt the addictive nature of xanax, and being a cause of rebound anxiety, pt was using xaNAX 6MG DAILY, WAS PLACED ON KLONOPIN WITH VERY GRADUAL DOWNTITRATION PT MET WITH TREATMENT TEAM AND MOTIVATIONAL THERAPY PROVIDED IN REFERENCE TO SEDATIVES AND OPIATE DEPENDENCE PT WAS EDUCATED ABOUT RISK OF RELAPSE ON DISCHARGE AND POSSIBLE OVERDOSE, ALSO EDUCATED ABO IMPORTANCE OF STARTING CBT FOR TREATMENT OF PANIC DISORDER PT WAS PLACED ON NEURONTIN AND PAXIL, NO REPORTED SIDE EFFECTS ON DISCHARGE PT MENTAL STATUS WAS STABLE, DENIED SUICIDAL OR HOMICIDAL IDEATION DENIED PERCEPTUAL DISTURBANCES FOLLOW UP WAS ARRANGED BY [employer] AT [facility] - Diagnosis (1) Sedative abuse Current Visit: Yes Status: Acute - Final Diagnosis (DSM 5) Condition upon Discharge: STABLE DSM 5: PANIC DISORDER SEDATIVE ABUSE OPIATE ABUSE Disposition: HOME/ ROUTINE Follow-up Treatment Plan: neurontin 200mg tid klonopin 0.25mg tid for xanax withdrawal, decrease gradually ativan 1mg tid for benzo withdrawal paxil 20mg qhs Prescriptions/Medication Reconciliation: clonazePAM [Klonopin] 0.5 mg PO DAILY #7 tab Gabapentin [Neurontin] 200 mg PO TID 7 Days #42 cap hydrOXYzine Pamoate [Vistaril] 50 mg PO Q8 PRN 7 Days #21 cap PRN Reason: Anxiety PARoxetine [Paxil] 20 mg PO HS 7 Days #7 tab traZODone [Desyrel] 100 mg PO HS 30 Days #30 tab - Antipsychotic Medications Pt discharged on 2 or more routine antipsychotic medications: No
[2018-10-26 09:24] VITALS: BP 142/86; PULSE 89
[2018-10-26] MEDS: Pantoprazole 40 mg EC Tab PO SCH (09:24)
[2018-10-26] MEDS: Metoprolol Succinate 25 mg XL Tab PO SCH (09:24)
[2018-10-26] MEDS: Multivitamin With Minerals Tab PO SCH (09:24)
[2018-10-26] MEDS: Insulin Lispro (humaLOG) 100 Units/ml Inj SC SCH (09:28)
[2018-10-26] MEDS: Insulin Detemir 100 Units/ml Inj SC SCH (09:31)
[2018-10-26 09:51] VITALS: RESP 20; TEMP 98.1
--- NOTE | 2018-10-26 11:10 | PCM.PYCHPN ---
Psychiatric Progress Note - Psychiatric Progress Note Patient seen today, length of contact: Pt evaluated, case discussed w/ team, chart reviewed Patient Chief Complaint: I STILL FEEL ANXIOUS Problems Identified/Issues Discussed: pt evaluated continues to report unprovoked repeated panic attacks with difficulty to breath , CBT provided, also motivational therapy provided in reference to effects of xanax and opiate abuse on current mental status, pt denied suicidal or homicidal ideation, denied perceptual disturbances Medical Problems: multiple hospitalizations, partial compliance Medication Change: Yes (increase paxil) Medical Record Reviewed: Yes Mental Status Examination - Cognitive Function Orientation: Person, Place, Situation, Time Memory: Intact Attention: WNL Concentration: WNL Association: WNL Fund of Knowledge: WNL - Mood Mood: Depressed, Anxious - Affect Affect: Constricted - Formal Thought Process Formal Thought Process: No Impairment - Suicidal Ideation Suicidal Ideation: No - Homicidal Ideation Homicidal Ideation: No Goal/Treatment Plan - Goal/Treatment Plan Need for Continued Stay: Severe depression anxiety, Discharge may exacerbated symptoms Progress Toward Problem(s) and Goals/Treatment Plan: klonopin 0.5mg tid for xanax withdrawal, decrease gradually ativan 1mg tid for benzo withdrawal paxil 20mg qhs
== END 2018-10-26 10:44 | disposition home or self-care (01) | DRG 744 ==
LOC: H.ER 17:16 → H.ERHOLD 19:51 → H.PSYCH 21:42
PROVIDERS: ADMIT Psychiatry & Neurology Psychiatry; ATTEND Psychiatry & Neurology Psychiatry
PROC: HZ52ZZZ Individual Psychotherapy for Substance Abuse Treatment, Cognitive-Behavioral (ICD-10-PCS; principal; 2018-10-20)
PROC: GZHZZZZ Group Psychotherapy (ICD-10-PCS; 2018-10-20)
PROC: GZ58ZZZ Individual Psychotherapy, Cognitive-Behavioral (ICD-10-PCS; 2018-10-20)
DX: F13.239 Sedative, hypnotic or anxiolytic dependence with withdrawal, unspecified (principal); F11.20 Opioid dependence, uncomplicated; F41.0 Panic disorder [episodic paroxysmal anxiety]; F32.9 Major depressive disorder, single episode, unspecified; F41.1 Generalized anxiety disorder; R45.851 Suicidal ideations; I25.10 Atherosclerotic heart disease of native coronary artery without angina pectoris; J44.9 Chronic obstructive pulmonary disease, unspecified; E11.9 Type 2 diabetes mellitus without complications; E78.5 Hyperlipidemia, unspecified; I10 Essential (primary) hypertension; E78.00 Pure hypercholesterolemia, unspecified; F17.210 Nicotine dependence, cigarettes, uncomplicated; Z95.5 Presence of coronary angioplasty implant and graft; Z98.1 Arthrodesis status; Z79.4 Long term (current) use of insulin; Z79.84 Long term (current) use of oral hypoglycemic drugs; Z79.82 Long term (current) use of aspirin; Z79.899 Other long term (current) drug therapy

== ENCOUNTER 2018-12-10 07:42 | Emergency (ER) | payer MEDICAID ==
[2018-12-10 07:47] VITALS: RESP 18; TEMP 98; O2SAT 99; BMI 28.2
--- NOTE | 2018-12-10 08:09 | ED PDOC ---
HPI: Psych/Substance Abuse Time Seen by Provider: 12/10/18 07:53 Chief Complaint (Nursing): Abdominal Pain Chief Complaint (Provider): Anxiety History Per: Patient History/Exam Limitations: no limitations Onset/Duration Of Symptoms: Days (x4) Current Symptoms Are (Timing): Still Present Additional Complaint(s): 48 year old male presents to the ED stating he is having a panic attack associated with the inability to swallow for the past four days. Denies chest pain, shortness of breath, and suicidal / homicidal ideation. Additionally, patient reports feeling nausea, but otherwise denies vomiting and diarrhea. PMD: Marlen Brunner Past Medical History Reviewed: Historical Data, Nursing Documentation, Vital Signs Vital Signs: Last Vital Signs Temp 98 F 12/10/18 07:46 Pulse 107 H 12/10/18 07:46 Resp 18 12/10/18 07:46 BP 143/93 H 12/10/18 07:46 Pulse Ox 99 12/10/18 07:46 - Medical History PMH: Anemia (Denied by pt.), Anxiety, Arthritis, Asthma, Back Problems, Bipolar Disorder, Bronchitis, COPD, Depression, Fractures (L ANKLE FX,LOWER BACK RECONSTRUCTIVE SX,L KNEE SYNOVITIS,R SHOULDER,R KNEE,), HTN, Hypercholesterolemia, Hyperlipidemia, Seizures, TIA Denies: Alzheimer's Disease, Cardia Arrhythmia, Crohn's Disease, Dementia, Diabetes, Diverticulitis, Emphysema, Fibromyalgia, Gastrointestinal Ulcer, Gall Bladder Disease, Hepatitis, HIV, Hyperthyroidism, Hypothyroidism, Kidney Stones, Migraine, Mitral Valve Prolapse, Osteoporosis, Pancreatitis, Paranoia, Parkinson's Disease, Peripheral Edema, Pneumonia, Post Traumatic Stress Disorder, Chronic Kidney Disease, Schizophrenia, Sickle Cell Disease, Sexually Transmitted Disease, Sleep Apnea Comment Only: CHF (PR . S/p TCCA stent placement X 2 weeks ago.) - Surgical History Surgical History: Coronary Stent Denies: Pacemaker - Family History Family History: States: Unknown Family Hx - Social History Current smoker - smoking cessation education provided: Yes (light) Alcohol: None Drugs: Cocaine (former user) - Immunization History Hx Tetanus Toxoid Vaccination: No Hx Influenza Vaccination: No Hx Pneumococcal Vaccination: No - Home Medications Home Medications: Ambulatory Orders Medication Instructions Recorded Pantoprazole Sodium [Protonix] 40 mg PO DAILY 03/18/18 Aspirin [Aspirin Chewable] 81 mg PO DAILY #30 chew 03/23/18 Atorvastatin [Lipitor] 40 mg PO DIN #30 tab 03/23/18 Clopidogrel [Plavix] 75 mg PO DAILY #30 tab 03/23/18 Insulin Detemir [Levemir] 15 unit SC QAM 10/12/18 Losartan [Cozaar] 50 mg PO DAILY 10/12/18 MetFORMIN ER [Glucophage XR] 500 mg PO BID 10/12/18 Metoprolol Succinate [Toprol Xl] 25 mg PO DAILY 10/12/18 Oxycodone HCl [Oxycontin] 15 mg PO BID PRN 10/12/18 oxyCODONE [oxyCODONE Immediate 10 mg PO TID PRN 10/12/18 Release Tab] Gabapentin [Neurontin] 200 mg PO TID 7 Days #42 cap 10/26/18 Multimineral/Multivitamin 1 tab PO DAILY tab 10/26/18 [Therapeutic-M Tab] PARoxetine [Paxil] 20 mg PO HS 7 Days #7 tab 10/26/18 clonazePAM [Klonopin] 0.5 mg PO DAILY #7 tab 10/26/18 hydrOXYzine Pamoate [Vistaril] 50 mg PO Q8 PRN 7 Days #21 cap 10/26/18 traZODone [Desyrel] 100 mg PO HS 30 Days #30 tab 10/26/18 Guaifenesin/Pseudoephedrne HCl 1 each PO BID #10 tab.er.12h 12/08/18 [Mucinex D ER 600-60 mg Tablet] - Allergies Allergies/Adverse Reactions: Allergies Allergy/AdvReac Type Severity Reaction Status Date / Time carisoprodol [From Soma] Allergy DIZZINESS Verified 11/20/18 02:32 varenicline [From Chantix] Allergy VOMITING Verified 11/20/18 02:32 Review of Systems ROS Statement: Except As Marked, All Systems Reviewed And Found Negative Cardiovascular: Negative for: Chest Pain Respiratory: Negative for: Shortness of Breath Gastrointestinal: Positive for: Nausea. Negative for: Vomiting, Diarrhea Psych: Positive for: Anxiety ("panic attack" causing him to be unable to swallow). Negative for: Suicidal ideation (and homicidal ideation) Physical Exam - Reviewed Nursing Documentation Reviewed: Yes Vital Signs Reviewed: Yes - Physical Exam Appears: Positive for: No Acute Distress Head Exam: Positive for: ATRAUMATIC, NORMOCEPHALIC Skin: Positive for: Normal Color, Warm. Negative for: Rash Eye Exam: Positive for: EOMI, Normal appearance, PERRL ENT: Positive for: Normal ENT Inspection. Negative for: Tonsillar Swelling Neck: Positive for: Normal, Painless ROM, Supple Cardiovascular/Chest: Positive for: Regular Rate, Rhythm Respiratory: Positive for: Normal Breath Sounds. Negative for: Accessory Muscle Use, Respiratory Distress Gastrointestinal/Abdominal: Positive for: Normal Exam, Soft. Negative for: Tenderness Back: Positive for: Normal Inspection Extremity: Positive for: Normal ROM (all extremities) Neurological/Psych: Positive for: Awake, Alert, Normal Tone, Oriented (x3), Mood/Affect (colorful). Negative for: Motor/Sensory Deficits - Laboratory Results Result Diagrams: 12/10/18 09:00 - ECG O2 Sat by Pulse Oximetry: 99 (RA) Pulse Ox Interpretation: Normal - Progress Re-evaluation Time: 12:07 Condition: Improved (Evaluated by Crisis. Feels better denies SI/HI) Medical Decision Making Medical Decision Making: Time: 758 Initial Impression: anxiety, panic attack Initial Plan: -- Alcohol serum --CMP --Ativan 1mg PO --Accucheck --Crisis evaluation Of note, patient seen swallowing liquid and medication without complication in ED room. Scribe Attestation: Documented by Janice Thompson, acting as a scribe for Jose Guzman MD. Provider Scribe Attestation: All medical record entries made by the Scribe were at my direction and personally dictated by me. I have reviewed the chart and agree that the record accurately reflects my personal performance of the history, physical exam, medical decision making, and the department course for this patient. I have also personally directed, reviewed, and agree with the discharge instructions and disposition. Disposition - Clinical Impression Clinical Impression: Anxiety - Patient ED Disposition Is Patient to be Admitted: No - Disposition Referrals: [facility] [Outside] Disposition: Routine/Home Disposition Time: 12:08 Condition: FAIR Additional Instructions: FOR IMMEDIATE MENTAL HEALTH CARE FOLLOW UP AT: [facility] [address] [phone] TUESDAY-TUESDAY: 9AM-8PM TUESDAY AND TUESDAY: 10AM-6PM WALK-INS ARE WELCOMED Instructions: Anxiety, Adult (DC) Forms: [facility] ([place])
[2018-12-10 09:29] LABS: ALB/GLOB RATIO 1.4 (1.0-2.1); ALBUMIN 3.9 g/dL (3.5-5.0); ALT/SGPT 33 U/L (21-72); AST/SGOT 20 U/L (17-59); BLOOD UREA NITROGEN 24 mg/dl (9-20); CALCIUM 9.7 mg/dL (8.4-10.2); GFR NON-AFRICAN AMERICAN > 60
[2018-12-10 12:23] VITALS: BP 132/96; PULSE 89
== END 2018-12-10 12:20 | disposition home or self-care (01) ==
LOC: H.ER 07:42
DX: F41.9 Anxiety disorder, unspecified (principal); E78.00 Pure hypercholesterolemia, unspecified; I50.9 Heart failure, unspecified; Z79.4 Long term (current) use of insulin; Z86.73 Personal history of transient ischemic attack (TIA), and cerebral infarction without residual deficits; Z95.5 Presence of coronary angioplasty implant and graft